=== PATIENT | female | born 1995 | race Hispanic/Latino ===

== ENCOUNTER 2019-02-16 09:21 | Emergency (ER) | payer SELFPAY ==
[~2019-02-16] VITALS: Ht 154.9 cm; Wt 77.1 kg
--- OUTSIDE RECORDS SUMMARY | 2019-02-16 09:25 | XMS REPORT ---
Author Author [facility] Organization [facility] Address Unknown Phone Unavailable Care Team Providers Care Insurance Territory Manager Name Role Phone Megan SCHULTE Unavailable Unavailable Payers Payer Name Policy Type Policy Number Effective Date Expiration Date Problems This patient has no known problems. Allergies, Adverse Reactions, Alerts Allergy Name Allergy Type Status Severity Reaction(s) Onset Date Inactive Date Treating Clinician Comments ibuprofen DA Active SV 2018-10-26 00:00:00 Medications This patient has no known medications. Results Test Description Test Time Test Comments Text Results Atomic Results Result Comments US [place] [address] Patient Name: PAULO GHOSH MR #: [id number] : 1995 Age/Sex: 22/F Req #: [id number] Adm Physician: Ordered by: AZEB SCHULTE MD Report #: [id number] Location: ER Room/Bed: Procedure: [id number] US/US TRANSVAGINAL Exam Date: Exam Time: REPORT STATUS: Signed PROCEDURE: TRANSVAGINAL ULTRASOUND COMPARISON: None. INDICATIONS: Not provided. TECHNIQUE: Grayscale transverse and sagittal transabdominal and transvaginal images were obtained of the pelvis. Transvaginal imaging was medically necessary to better evaluate endometrium. FINDINGS: UTERUS: 6 x 3.1 x 3.2 cm. Uniform myometrial echotexture. ENDOMETRIUM: Uniform in echogenicity, 0.6 cm in thickness, within normal limits RIGHT OVARY: 2.9 x 1.9 x 2.3 cm. Contains several small follicles. Normal color Doppler appearance. LEFT OVARY: 2.9 x 2.1 x 3.3 cm. Contains several small follicles and a 1.3 cm dominant follicle. Normal color Doppler appearance. There is no free fluid within the pelvis. No adnexal masses. CONCLUSION: Normal transabdominal and transvaginal pelvic ultrasound. Dictated by: Alvina Godfrey M.D. on 2017 at 14:14 Electronically approved by: Alvina Godfrey M.D. on 2017 at 14:14 Dictated By: ALVINA GODFREY MD [id number] Transcribed By: MARYAN on 08/17/17 1414 COPY TO: AZEB SCHULTE MD PELVIS COMPLETE NON OB [place] [address] Patient Name: PAULO GHOSH MR #: [id number] : 1995 Age/Sex: 22/F Req #: [id number] Adm Physician: Ordered by: AZEB SCHULTE MD Report #: [id number] Location: ER Room/Bed: Procedure: [id number] US/US PELVIS COMPLETE NON OB Exam Date: Exam Time: REPORT STATUS: Signed PROCEDURE: US PELVIS COMPLETE NON OB COMPARISON: None. INDICATIONS: Not provided. CONCLUSION: Please refer to "US TRANSVAGINAL" performed at the same date and time for full dictated report. Dictated by: Alvina Godfrey M.D. on 2017 at 14:15 Electronically approved by: Alvina Godfrey M.D. on 2017 at 14:15 Dictated By: ALVINA GODFREY MD [id number] Transcribed By: MARYAN on 08/17/17 1415 COPY TO: AZEB SCHULTE MD
--- OUTSIDE RECORDS SUMMARY | 2019-02-16 09:25 | XMS REPORT ---
Author Author Dasia Garcia Organization [employer] Address Unknown Phone Unavailable Care Team Providers Care Agriculture Mechanic Name Role Phone Dasia Garcia Unavailable Encounters Encounter Location Date Labs [facility] February 21, 2015 [place]-REPEAT CBC [facility] February 22, 2015 3 DAY F/U [facility] February 26, 2015 ANXIETY [facility] February 09, 2015 Update Demographics - Additional Info [facility] February 09, 2015 Update Demographics - Personal Info [facility] February 09, 2015 Problems Problem Type Condition ICD-9 Code Onset Dates Condition Status Assessment Elevated white blood cell count 288.60 Active Medications Medication Code System Code Instructions Start Date End Date Status Dosage Vitamin D (Ergocalciferol) [facility] [address]-55 05590 UNIT Orally once per week February 21, 2015 Aug 08, 2015 Active 1 capsule Social History Social History Element Qualifiers Date Reported children . None February 09, 2015 Tobacco Use: . Are you a: never smoker February 09, 2015 Marital Status: single. February 09, 2015 Do you drink alcohol? . Status: No February 09, 2015 Summary Purpose eClinicalWorks Submission
--- OUTSIDE RECORDS SUMMARY | 2019-02-16 09:25 | XMS REPORT ---
Author Author Dasia Garcia [facility] [employer] Address Unknown Phone Unavailable Care Team Providers Care News Intern Name Role Phone Dasia Garcia CP Unavailable Allergies, Adverse Reactions, Alerts Substance Reaction Event Type Ibuprofen hives Drug Allergy Encounters Encounter Location Date Labs [facility] February 21, 2015 [place]-REPEAT CBC [facility] February 22, 2015 3 DAY F/U [facility] February 26, 2015 PA on Clobetasol 0.05% [facility] February 28, 2015 ANXIETY [facility] February 09, 2015 Update Demographics - Additional Info [facility] February 09, 2015 Update Demographics - Personal Info [facility] February 09, 2015 Problems Problem Type Condition ICD-9 Code Onset Dates Condition Status Assessment Depression with anxiety 300.4 Active Assessment Psoriasis 696.1 Active Assessment Vitamin d deficiency 268.9 Active Assessment Spells of trembling 781.0 Active Assessment Soft tissue mass 729.90 Active Medications Medication Code System Code Instructions Start Date End Date Status Dosage Zofran ODT [facility] [address]-31 4 mg dissolve under tongue every 8 hrs prn nausea February 09, 2015 Active 1 tablet Lexapro [facility] [address]-28 10 mg Orally Once a day February 09, 2015 Active 1 tablet Vitamin D (Ergocalciferol) [facility] [address]-91 91335 UNIT Orally once per week February 21, 2015 Aug 08, 2015 Active 1 capsule Xanax [facility] [address]-30 0.5 MG Orally once a day as needed for anxiety February 26, 2015 Active 1 tablet Xanax [facility] [address]-72 0.25 MG Orally once a day as needed for anxiety February 09, 2015 Inactive 1 tablet Olux-E [facility] [address]-76 0.05 % Externally Twice a day February 26, 2015 April 27, 2015 Active 1 application to affected area Social History Social History Element Qualifiers Date Reported children . None February 26, 2015 Tobacco Use: . Are you a: never smoker February 26, 2015 Marital Status: single. February 26, 2015 Do you drink alcohol? . Status: No February 26, 2015 Vital Signs Date/Time: February 26, 2015 Weight 168 lbs Height 61 in Temperature 97.7 F Cardiac Monitoring Heart Rate 66 /min Blood Pressure Diastolic 80 mm Hg Blood Pressure Systolic 112 mm Hg Results DECADRON 1MGx4 EKG DEPO MEDROL 80MG Summary Purpose eClinicalWorks Submission
--- OUTSIDE RECORDS SUMMARY | 2019-02-16 09:25 | XMS REPORT ---
Author Author Leighann Avitia Organization [employer] Address Unknown Phone Unavailable Care Team Providers Care Compounding And Finishing Supervisor Name Role Phone Leighann Avitia Unavailable Encounters Encounter Location Date Labs [facility] February 21, 2015 NV-REPEAT CBC [facility] February 22, 2015 3 DAY F/U [facility] February 26, 2015 PA on Clobetasol 0.05% [facility] February 28, 2015 ANXIETY [facility] February 09, 2015 Update Demographics - Additional Info [facility] February 09, 2015 Update Demographics - Personal Info [facility] February 09, 2015 PA on Flucocinodine 0.05% [facility] March 06, 2015 Unknown [facility] Oct 31, 2015 possible kidney infection [facility] Aug 16, 2015 SOFT TISSUE US/ HAMIDA [facility] February 28, 2015 Unknown [facility] March 06, 2015 Unknown [facility] April 10, 2015 New Appointment Request [facility] March 31, 2015 New Refill Request [facility] March 30, 2015 Unknown [facility] March 30, 2015 UTI? [facility] March 22, 2015 Cancel Appointment Request [facility] March 23, 2015 New Referral Request [facility] March 12, 2015 Unknown [facility] March 18, 2015 New Appointment Request [facility] Jul 09, 2015 Problems Problem Type Condition ICD-9 Code Onset Dates Condition Status Problem Depression 311 Active Medications Medication Code System Code Instructions Start Date End Date Status Dosage Fluocinonide MEDISPAN [address]-01 0.05 % Externally bid-qid February 28, 2015 Dec 30, 2015 Active apply to scalp Social History Social History Element Qualifiers Date Reported children . None Oct 24, 2015 Tobacco Use: . Are you a: never smoker Oct 24, 2015 Marital Status: single. Oct 24, 2015 Do you drink alcohol? . Status: No Oct 24, 2015 Summary Purpose eClinicalWorks Submission
--- OUTSIDE RECORDS SUMMARY | 2019-02-16 09:25 | XMS REPORT ---
Author Author Yu Daniels [employer] Address Unknown Phone Unavailable Care Team Providers Care Steel Chipper Name Role Phone Yu Daniels CP Unavailable Allergies, Adverse Reactions, Alerts Substance Reaction Event Type Ibuprofen hives Drug Allergy Encounters Encounter Location Date Labs [facility] February 21, 2015 NV-REPEAT CBC [facility] February 22, 2015 3 DAY F/U [facility] February 26, 2015 PA on Clobetasol 0.05% [facility] February 28, 2015 ANXIETY [facility] February 09, 2015 Update Demographics - Additional Info [facility] February 09, 2015 Update Demographics - Personal Info [facility] February 09, 2015 PA on Flucocinodine 0.05% [facility] March 06, 2015 Unknown [facility] Oct 31, 2015 possible kidney infection [facility] Aug 16, 2015 SOFT TISSUE US/ HAMIDA [facility] February 28, 2015 Unknown [facility] March 06, 2015 Unknown [facility] April 10, 2015 New Appointment Request [facility] March 31, 2015 New Refill Request [facility] March 30, 2015 Unknown [facility] March 30, 2015 Needs call back from Medical Staff [facility] Dec 05, 2016 UTI? [facility] March 22, 2015 NEEDS CPAP [facility] Dec 03, 2016 Cancel Appointment Request [facility] March 23, 2015 New Referral Request [facility] March 12, 2015 Unknown [facility] March 18, 2015 New Appointment Request [facility] Jul 09, 2015 Problems Problem Type Condition ICD-9 Code Onset Dates Condition Status Problem Depression 311 Active Assessment Other viral agents as the cause of diseases classified elsewhere B97.89 Active Problem BMI 32.0-32.9,adult Z68.32 Active Assessment BMI 32.0-32.9,adult Z68.32 Active Assessment Acute upper respiratory infection, unspecified J06.9 Active Assessment Apneic episode R06.81 Active Medications Medication Code System Code Instructions Start Date End Date Status Dosage [facility]x [facility] [address]-81 30-600 MG Orally every 12 hrs Active 1 tablet as needed Zofran ODT [facility] 85201498834 4 mg dissolve under tongue every 8 hrs prn nausea Active 1 tablet Xanax [facility] [address]-69 0.5 MG Orally once a day as needed for anxiety February 26, 2015 Active 1 tablet Social History Social History Element Qualifiers Date Reported children . None Dec 03, 2016 Tobacco Use: . Are you a: never smoker Dec 03, 2016 Marital Status: single. Dec 03, 2016 Do you drink alcohol? . Status: No Dec 03, 2016 Vital Signs Date/Time: Dec 03, 2016 Weight 173 lbs Height 61 in Temperature 98.0 F Cardiac Monitoring Heart Rate 68 /min Blood Pressure Diastolic 60 mm Hg Blood Pressure Systolic 110 mm Hg Summary Purpose eClinicalWorks Submission
--- OUTSIDE RECORDS SUMMARY | 2019-02-16 09:25 | XMS REPORT ---
Author Author Yu Daniels [facility] [employer] Address Unknown Phone Unavailable Care Team Providers Care Chainstitch Pants Outseamer Name Role Phone Yu Daniels CP Unavailable Encounters Encounter Location Date PA on Flucocinodine 0.05% [facility] March 06, 2015 Unknown [facility] April 10, 2015 New Appointment Request [facility] March 31, 2015 New Refill Request [facility] March 30, 2015 Unknown [facility] March 30, 2015 UTI? [facility] March 22, 2015 Cancel Appointment Request [facility] March 23, 2015 New Referral Request [facility] March 12, 2015 Unknown [facility] March 18, 2015 New Appointment Request [facility] Jul 09, 2015 Labs [facility] February 21, 2015 NV-REPEAT CBC [facility] February 22, 2015 3 DAY F/U [facility] February 26, 2015 PA on Clobetasol 0.05% [facility] February 28, 2015 ANXIETY [facility] February 09, 2015 Update Demographics - Additional Info [facility] February 09, 2015 Update Demographics - Personal Info [facility] February 09, 2015 Unknown [facility] Oct 31, 2015 possible kidney infection [facility] Aug 16, 2015 SOFT TISSUE US/ HAMIDA [facility] February 28, 2015 Unknown [facility] March 06, 2015 Needs call back from Medical Staff [facility] Dec 05, 2016 NEEDS CPAP [facility] Dec 03, 2016 follow up from ER- tailbone pain [facility] Dec 29, 2016 PA on Zofran 8mg [facility] Dec 30, 2016 Problems Problem Type Condition ICD-9 Code Onset Dates Condition Status Problem Depression 311 Active Problem BMI 32.0-32.9,adult Z68.32 Active Medications Medication Code System Code Instructions Start Date End Date Status Dosage Phenergan MEDISPAN [address]-37 25 MG Orally Q8 PRN nausea Dec 30, 2016 Jan 06, 2017 Active 1 tablet as needed Zofran ODT [facility] 88453720839 4 mg dissolve under tongue every 8 hrs prn nausea Inactive 1 tablet Social History Social History Element Qualifiers Date Reported Ethnicity . Status , Is nepali your primary language? Yes Dec 29, 2016 children . None Dec 29, 2016 Tobacco Use: . Are you a: never smoker Dec 29, 2016 Marital Status: single. Dec 29, 2016 Do you drink alcohol? . Status: No Dec 29, 2016 Occupation: . Stay at home Dec 29, 2016 Summary Purpose eClinicalWorks Submission
--- OUTSIDE RECORDS SUMMARY | 2019-02-16 09:25 | XMS REPORT ---
Author Author Pam Nathan Organization [employer] Address Unknown Phone Unavailable Care Team Providers Care Wood Tank Erector Name Role Phone Pam Nathan CP Unavailable Allergies, Adverse Reactions, Alerts Substance Reaction Event Type Ibuprofen hives Drug Allergy Encounters Encounter Location Date Labs [facility] February 21, 2015 NV-REPEAT CBC [facility] February 22, 2015 3 DAY F/U [facility] February 26, 2015 PA on Clobetasol 0.05% [facility] February 28, 2015 ANXIETY [facility] February 09, 2015 Update Demographics - Additional Info [facility] February 09, 2015 Update Demographics - Personal Info [facility] February 09, 2015 PA on Flucocinodine 0.05% [facility] March 06, 2015 SOFT TISSUE US/ HAMIDA [facility] February 28, 2015 Unknown [facility] March 06, 2015 New Refill Request [facility] March 30, 2015 UTI? [facility] March 22, 2015 Cancel Appointment Request [facility] March 23, 2015 New Referral Request [facility] March 12, 2015 Unknown [facility] March 18, 2015 Problems Problem Type Condition ICD-9 Code Onset Dates Condition Status Assessment Urinary tract infection 599.0 Active Assessment Dysuria 788.1 Active Problem Depression 311 Active Assessment Lice 132.9 Active Assessment Back pain 724.5 Active Medications Medication Code System Code Instructions Start Date End Date Status Dosage Fluocinonide MEDISPAN [address]-99 0.05 % Externally bid-qid February 28, 2015 April 05, 2015 Active apply to scalp Cipro [facility] [address]-64 250 MG Orally every 12 hrs March 22, 2015 March 29, 2015 Active 1 tablet Lexapro [facility] [address]-65 10 mg Orally Once a day February 09, 2015 Active 1 tablet Zofran ODT [facility] 52521081936 4 mg dissolve under tongue every 8 hrs prn nausea Active 1 tablet Xanax [facility] [address]-59 0.5 MG Orally once a day as needed for anxiety February 26, 2015 Active 1 tablet Sklice [facility] [address]-98 0.5 % Externally once March 22, 2015 March 23, 2015 Active as directed Vitamin D (Ergocalciferol) [facility] [address]-52 06831 UNIT Orally once per week February 21, 2015 Aug 08, 2015 Active 1 capsule Social History Social History Element Qualifiers Date Reported children . None March 22, 2015 Tobacco Use: . Are you a: never smoker March 22, 2015 Marital Status: single. March 22, 2015 Do you drink alcohol? . Status: No March 22, 2015 Vital Signs Date/Time: March 22, 2015 Weight 168 lbs Height 61 in Temperature 98.0 F Cardiac Monitoring Heart Rate 83 /min Blood Pressure Diastolic 62 mm Hg Blood Pressure Systolic 112 mm Hg Results ROCEPHIN 250MG X2 CBC Platelets(- ) 289 NEUTROPHILS(- ) mid-1.2,gra-8.3 MCHC(- ) 34.8 MCH(- ) 30.8 MCV(- ) 88.4 WBC(- ) 11.5h RDW(- ) 14.0 RBC(- ) 4.16 Hemoglobin(- ) 12.8 Hematocrit(- ) 36.8l URINE AUTO W/O SCOPE Bili(- ) NEG Glucose(- ) NEG Urobilinogen(- ) 0.2 Ketones(- ) NEG Spec Truchas(- ) 1.010 pH(- ) 7.5 Turbidity(- ) CLOUDY Protein(- ) TRACE Blood(- ) TRACE Leuk Est(- ) MODERATE Nitrite(- ) NEG Color(- ) YELLOW Summary Purpose eClinicalWorks Submission
--- OUTSIDE RECORDS SUMMARY | 2019-02-16 09:25 | XMS REPORT ---
Author Author Dasia Garcia Organization [employer] Address Unknown Phone Unavailable Care Team Providers Care Cage Loader Name Role Phone Dasia Garcia CP Unavailable Allergies, Adverse Reactions, Alerts Substance Reaction Event Type Ibuprofen hives Drug Allergy Encounters Encounter Location Date ANXIETY [facility] February 09, 2015 Update Demographics - Additional Info [facility] February 09, 2015 Update Demographics - Personal Info [facility] February 09, 2015 Problems Problem Type Condition ICD-9 Code Onset Dates Condition Status Assessment Episodes of trembling 781.0 Active Assessment Anxiety and depression 300.4 Active Medications Medication Code System Code Instructions Start Date End Date Status Dosage [facility] [address]-30 4 mg dissolve under tongue every 8 hrs prn nausea February 09, 2015 Active 1 tablet [facility] [address]-44 10 mg Orally Once a day February 09, 2015 Active 1 tablet Xanax [facility] [address]-74 0.25 MG Orally once a day as needed for anxiety February 09, 2015 Active 1 tablet Social History Social History Element Qualifiers Date Reported children . None February 09, 2015 Tobacco Use: . Are you a: never smoker February 09, 2015 Marital Status: single. February 09, 2015 Do you drink alcohol? . Status: No February 09, 2015 Vital Signs Date/Time: February 09, 2015 Weight 169 lbs Height 61 in Temperature 99.0 F Cardiac Monitoring Heart Rate 80 /min Blood Pressure Diastolic 70 mm Hg Blood Pressure Systolic 130 mm Hg Summary Purpose eClinicalWorks Submission
--- OUTSIDE RECORDS SUMMARY | 2019-02-16 09:25 | XMS REPORT ---
Author Author Yu Daniels [employer] Address Unknown Phone Unavailable Care Team Providers Care Penetration Tester Name Role Phone Yu Daniels CP Unavailable Encounters Encounter Location Date [place] on Flucocinodine 0.05% [facility] March 06, 2015 Unknown [facility] April 10, 2015 New Appointment Request [facility] March 31, 2015 New Refill Request [facility] March 30, 2015 Unknown [facility] March 30, 2015 UTI? [facility] March 22, 2015 Cancel Appointment Request [facility] March 23, 2015 New Referral Request [facility] March 12, 2015 Unknown [facility] March 18, 2015 New Appointment Request [facility] Jul 09, 2015 Labs [facility] February 21, 2015 [place]-REPEAT CBC [facility] February 22, 2015 3 DAY F/U [facility] February 26, 2015 PA on Clobetasol 0.05% [facility] February 28, 2015 ANXIETY [facility] February 09, 2015 Update Demographics - Additional Info [facility] February 09, 2015 Update Demographics - Personal Info [facility] February 09, 2015 Unknown [facility] Oct 31, 2015 possible kidney infection [facility] Aug 16, 2015 SOFT TISSUE US/ HAMIDA [facility] February 28, 2015 Unknown [facility] March 06, 2015 Unknown [facility] Jan 05, 2017 Needs call back from Medical Staff [facility] Dec 05, 2016 NEEDS CPAP [facility] Dec 03, 2016 follow up from ER- tailbone pain [facility] Dec 29, 2016 [place] on Zofran 8mg [facility] Dec 30, 2016 Problems Problem Type Condition ICD-9 Code Onset Dates Condition Status Problem Depression 311 Active Assessment Cervical strain, acute, subsequent encounter S16.1XXD Active Problem BMI 32.0-32.9,adult Z68.32 Active Medications Medication Code System Code Instructions Start Date End Date Status Dosage Tylenol/Codeine #3 MEDISPAN [address]-26 300-30 MG subcutaneously q 8 PRN pain, LAST REFILL Dec 29, 2016 Jan 13, 2017 Active 1 tablet Social History Social History Element Qualifiers Date Reported Ethnicity . Status , Is austrian your primary language? Yes Dec 29, 2016 children . None Dec 29, 2016 Tobacco Use: . Are you a: never smoker Dec 29, 2016 Marital Status: single. Dec 29, 2016 Do you drink alcohol? . Status: No Dec 29, 2016 Occupation: . Stay at home Dec 29, 2016 Summary Purpose [employer] Submission
--- OUTSIDE RECORDS SUMMARY | 2019-02-16 09:25 | XMS REPORT ---
Author Author Yu Daniels [facility] [employer] Address Unknown Phone Unavailable Care Team Providers Care Financial Risk Manager Name Role Phone Yu Daniels CP Unavailable Encounters Encounter Location Date Labs [facility] February 21, 2015 [place]-REPEAT CBC [facility] February 22, 2015 3 DAY F/U [facility] February 26, 2015 [place] on Clobetasol 0.05% [facility] February 28, 2015 ANXIETY [facility] February 09, 2015 Update Demographics - Additional Info [facility] February 09, 2015 Update Demographics - Personal Info [facility] February 09, 2015 PA on Flucocinodine 0.05% [facility] March 06, 2015 Unknown [facility] Oct 31, 2015 possible kidney infection [facility] Aug 16, 2015 SOFT TISSUE US/ HAMIDA [facility] February 28, 2015 Unknown [facility] March 06, 2015 Unknown [facility] April 10, 2015 New Appointment Request [facility] March 31, 2015 New Refill Request [facility] March 30, 2015 Unknown [facility] March 30, 2015 Needs call back from Medical Staff [facility] Dec 05, 2016 UTI? [facility] March 22, 2015 Cancel Appointment Request [facility] March 23, 2015 New Referral Request [facility] March 12, 2015 Unknown [facility] March 18, 2015 New Appointment Request [facility] Jul 09, 2015 Problems Problem Type Condition ICD-9 Code Onset Dates Condition Status Problem Depression 311 Active Problem BMI 32.0-32.9,adult Z68.32 Active Medications Medication Code System Code Instructions Start Date End Date Status Dosage Cheratussin AC MEDISPAN [address]-59 100-10 MG/5ML Orally every 8 hrs as needed Dec 05, 2016 Active 5 ml Albuterol Sulfate HFA [facility] [address]-97 108 (90 Base) MCG/ACT Inhalation every 4-6 hrs PRN Dec 05, 2016 Active 2 puffs as needed Social History Social History Element Qualifiers Date Reported children . None Dec 03, 2016 Tobacco Use: . Are you a: never smoker Dec 03, 2016 Marital Status: single. Dec 03, 2016 Do you drink alcohol? . Status: No Dec 03, 2016 Summary Purpose [employer]Works Submission
--- OUTSIDE RECORDS SUMMARY | 2019-02-16 09:25 | XMS REPORT | Continuity of Care Document ---
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 [id number] 12/05/2016 12/05/2016 [facility] Needs call back from Medical Staff [id number] 12/05/2016 12/05/2016 [facility] Needs call back from Medical Staff [id number] 12/05/2016 12/05/2016 [facility] Needs call back from Medical Staff [id number] 12/05/2016 12/05/2016 [facility] follow up from ER- tailbone pain [id number] 12/29/2016 12/29/2016 [facility] follow up from ER- tailbone pain [id number] 12/29/2016 12/29/2016 [facility] follow up from ER- tailbone pain [id number] 12/29/2016 12/29/2016 [facility] [place] on Zofran 8mg [id number] 12/30/2016 12/30/2016 [facility] PA on Curly 8mg [id number] 12/30/2016 12/30/2016 [facility] Unknown [id number] 01/05/2017 01/05/2017 [facility] Procedures Procedure Code Date Perfomer Comments Source
--- OUTSIDE RECORDS SUMMARY | 2019-02-16 09:25 | XMS REPORT ---
Author Author Leighann Avitia Organization [employer] Address Unknown Phone Unavailable Care Team Providers Care Department Head Name Role Phone Leighann Avitia Unavailable Encounters Encounter Location Date Labs [facility] February 21, 2015 [place]-REPEAT CBC [facility] February 22, 2015 3 DAY F/U [facility] February 26, 2015 [place] on Clobetasol 0.05% [facility] February 28, 2015 ANXIETY [facility] February 09, 2015 Update Demographics - Additional Info [facility] February 09, 2015 Update Demographics - Personal Info [facility] February 09, 2015 PA on Flucocinodine 0.05% [facility] March 06, 2015 SOFT TISSUE US/ HAMIDA [facility] February 28, 2015 Unknown [facility] March 06, 2015 Unknown [facility] April 10, 2015 New Appointment Request [facility] March 31, 2015 New Refill Request [facility] March 30, 2015 Unknown [facility] March 30, 2015 UTI? [facility] March 22, 2015 Cancel Appointment Request [facility] March 23, 2015 New Referral Request [facility] March 12, 2015 Unknown [facility] March 18, 2015 Problems Problem Type Condition ICD-9 Code Onset Dates Condition Status Problem Depression 311 Active Social History Social History Element Qualifiers Date Reported children . None March 22, 2015 Tobacco Use: . Are you a: never smoker March 22, 2015 Marital Status: single. March 22, 2015 Do you drink alcohol? . Status: No March 22, 2015 Summary Purpose [employer] Submission
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
--- OUTSIDE RECORDS SUMMARY | 2019-02-16 09:25 | XMS REPORT ---
Author Author Dasia Garcia Organization [employer] Address Unknown Phone Unavailable Care Team Providers Care Regulatory Attorney Name Role Phone Dasia Garcia Unavailable Encounters Encounter Location Date Labs [facility] February 21, 2015 [place]-REPEAT CBC [facility] February 22, 2015 3 DAY F/U [facility] February 26, 2015 PA on Clobetasol 0.05% [facility] February 28, 2015 ANXIETY [facility] February 09, 2015 Update Demographics - Additional Info [facility] February 09, 2015 Update Demographics - Personal Info [facility] February 09, 2015 PA on Flucocinodine 0.05% [facility] March 06, 2015 SOFT TISSUE US/ DASIA [facility] February 28, 2015 Unknown [facility] March 06, 2015 Medications Medication Code System Code Instructions Start Date End Date Status Dosage Fluocinonide [facility] [address]-02 0.05 % Externally bid-qid February 28, 2015 April 05, 2015 Active apply to scalp Social History Social History Element Qualifiers Date Reported children . None February 26, 2015 Tobacco Use: . Are you a: never smoker February 26, 2015 Marital Status: single. February 26, 2015 Do you drink alcohol? . Status: No February 26, 2015 Summary Purpose [employer]Works Submission
--- OUTSIDE RECORDS SUMMARY | 2019-02-16 09:25 | XMS REPORT ---
Author Author Pam Nathan Organization [employer] Address Unknown Phone Unavailable Care Team Providers Care Brand Marketing Intern Name Role Phone Pam Nathan CP Unavailable Encounters Encounter Location Date Labs [facility] February 21, 2015 [place]-REPEAT CBC [facility] February 22, 2015 3 DAY F/U [facility] February 26, 2015 PA on Clobetasol 0.05% [facility] February 28, 2015 ANXIETY [facility] February 09, 2015 Update Demographics - Additional Info [facility] February 09, 2015 Update Demographics - Personal Info [facility] February 09, 2015 PA on Flucocinodine 0.05% [facility] March 06, 2015 SOFT TISSUE US/ HAMIDA [facility] February 28, 2015 Unknown [facility] March 06, 2015 Unknown [facility] April 10, 2015 New Appointment Request [facility] March 31, 2015 New Refill Request [facility] March 30, 2015 Unknown [facility] March 30, 2015 UTI? [facility] March 22, 2015 Cancel Appointment Request [facility] March 23, 2015 New Referral Request [facility] March 12, 2015 Unknown [facility] March 18, 2015 Problems Problem Type Condition ICD-9 Code Onset Dates Condition Status Assessment Psoriasis 696.1 Active Problem Depression 311 Active Medications Medication Code System Code Instructions Start Date End Date Status Dosage Chaz [place] [address]-52 0.5 % Externally once March 22, 2015 March 23, 2015 Active as directed Social History Social History Element Qualifiers Date Reported children . None March 22, 2015 Tobacco Use: . Are you a: never smoker March 22, 2015 Marital Status: single. March 22, 2015 Do you drink alcohol? . Status: No March 22, 2015 Summary Purpose [employer]ClinicalWorks Submission
[2019-02-16 10:19] LABS: BILIRUBIN,URINE NEGATIVE (NEGATIVE); CLARITY,URINE CLEAR (CLEAR); COLOR,URINE YELLOW (YELLOW); KETONES,URINE NEGATIVE (NEGATIVE); LEUKOCYTE ESTERASE ,URINE NEGATIVE (NEGATIVE); NITRITE,URINE NEGATIVE (NEGATIVE); PROTEIN,URINE DIPSTICK NEGATIVE (NEGATIVE); URINE UROBILINOGEN 0.2 mg/dL (0.2 - 1)
[2019-02-16 10:25] LABS: PREGNANCY TEST, URINE NEGATIVE (NEGATIVE)
[2019-02-16 10:44] LABS: BACTERIA,URINE FEW /HPF; EPITHELIAL CELLS,URINE RARE /LPF; RBC,URINE 0-5 /HPF (0-5)
--- NOTE | 2019-02-16 11:01 | NUR ---
Walking rounds completed with SENAIT Mccauley. Assumed care for this patient, pt is in no acute distress at this time.
--- NOTE | 2019-02-16 11:19 | Diagnostic Imaging Report ---
EXAMINATION: CHEST 2 VIEWS INDICATION: Cough, fever. COMPARISON: None FINDINGS: TUBES and LINES: None. LUNGS: Lungs are well inflated. Lungs are clear. There is no evidence of pneumonia or pulmonary edema. PLEURA: No pleural effusion or pneumothorax. HEART AND MEDIASTINUM: The cardiomediastinal silhouette is unremarkable. BONES AND SOFT TISSUES: No acute osseous lesion. Soft tissues are unremarkable. UPPER ABDOMEN: No free air under the diaphragm. IMPRESSION: No acute radiographic abnormality. Signed by: Dr. Mine Esquivel MD on 02/16/2019 11:16 AM
[2019-02-16 11:58] VITALS: BP 119/95
== END 2019-02-16 12:10 | disposition home or self-care (01) ==
LOC: ER 09:21
DX: R50.9 Fever, unspecified (principal); R05 Cough; J02.9 Acute pharyngitis, unspecified; B00.2 Herpesviral gingivostomatitis and pharyngotonsillitis
CPT/HCPCS: 71046; 81001; 81025; 83518; 87070; 99283